=== PATIENT | male | born 1985 | race Caucasian/White ===

== ENCOUNTER 2019-02-24 22:43 | Emergency (ER) | payer MEDICAID ==
[~2019-02-24] VITALS: Ht 177.8 cm; Wt 74.0 kg
[~2019-02-24 22:43] MED LIST: ONDA4TAB6 PO
[2019-02-24] MEDS ORDERED: LIDOcaine 1% W/epiNEPHrine 1:100,000 20ml vial IJ ONE (23:30)
[2019-02-24] MEDS ORDERED: LIDOcaine 1% w/epiNEPHrine 1:200,000 30ml vial IM ONE (23:30)
--- NOTE | 2019-02-25 00:31 | NUR ---
IRRIGATED LEFT EYEBROW LACERATION WITH ZEROWET AND 400 ML OF NS
[2019-02-25] MEDS ORDERED: PENI500T2 PO (00:54)
[2019-02-25 01:19] VITALS: BP 127/72
== END 2019-02-25 01:15 | disposition home or self-care (01) ==
LOC: ER 22:44
DX: S01.112A Laceration without foreign body of left eyelid and periocular area, initial encounter (principal); S09.90XA Unspecified injury of head, initial encounter; K04.7 Periapical abscess without sinus; F17.200 Nicotine dependence, unspecified, uncomplicated; F10.99 Alcohol use, unspecified with unspecified alcohol-induced disorder; F12.90 Cannabis use, unspecified, uncomplicated; Z98.890 Other specified postprocedural states; V87.7XXA Person injured in collision between other specified motor vehicles (traffic), initial encounter; Y93.89 Activity, other specified; Y92.488 Other paved roadways as the place of occurrence of the external cause; Y99.8 Other external cause status; Y90.9 Presence of alcohol in blood, level not specified
CPT/HCPCS: 12013; 99283

== ENCOUNTER 2019-02-27 11:11 | Emergency (ER) | payer MEDICAID ==
[~2019-02-27] VITALS: Ht 177.8 cm; Wt 86.4 kg
[~2019-02-27 11:11] MED LIST changes: +LIDOcaine 1% W/epiNEPHrine 1:100,000 20ml vial ONE; +PENI500T2 PO
[2019-02-27 11:34] VITALS: BP 132/78
[2019-02-27] MEDS ORDERED: HYDROcodone/acetaminophen 5mg/325mg tablet PO ONE (12:30)
== END 2019-02-27 12:55 | disposition home or self-care (01) ==
LOC: ER 11:12
DX: K04.7 Periapical abscess without sinus (principal); F12.90 Cannabis use, unspecified, uncomplicated; F10.99 Alcohol use, unspecified with unspecified alcohol-induced disorder; F17.200 Nicotine dependence, unspecified, uncomplicated; Z79.899 Other long term (current) drug therapy; Y90.9 Presence of alcohol in blood, level not specified
CPT/HCPCS: 41800; 99283

== ENCOUNTER 2019-04-15 11:52 | Inpatient (IN) | payer MEDICAID, OTHER ==
[~2019-04-15] VITALS: Ht 177.8 cm; Wt 75.0 kg
[2019-04-15] VITALS (14 sets, daily range): BP systolic 112–145; BP diastolic 64–86
[~2019-04-15 11:52] MED LIST changes: -LIDOcaine 1% W/epiNEPHrine 1:100,000 20ml vial ONE; -PENI500T2 PO
[2019-04-15 12:23] LABS: BASOPHILS % (AUTO) 0 % (0-1); EOSINOPHILS % (AUTO) 0 % (0-6); HEMATOCRIT 42.5 % (42.0-52.0); HEMOGLOBIN 14.7 g/dl (14.0-17.9); LYMPHOCYTES # (AUTO) 0.3 X10'3 (1.1-4.8); LYMPHOCYTES % (AUTO) 3.7 % (21-51); MEAN CORPUSCULAR HEMOGLOBIN 32.4 PG (27.0-31.0); MEAN CORPUSCULAR HGB CONC 34.5 g/dL (33.0-36.5); MEAN CORPUSCULAR VOLUME 93.8 FL (78-98); MEAN PLATELET VOLUME 8.8 FL (7.4-10.4); MONOCYTES # (AUTO) 0.3 X10'3 (0-0.9); MONOCYTES % (AUTO) 4.4 % (2-12); NEUTROPHILS # (AUTO) 6.8 X10'3 (1.8-7.7); NEUTROPHILS % (AUTO) 91.9 % (42-75); PLATELET COUNT 267 X10'3 (140-440); RED BLOOD COUNT 4.53 X10'6 (4.70-6.10); RED CELL DISTRIBUTION WIDTH 13.7 % (11.5-14.5); WHITE BLOOD COUNT 7.4 X10'3 (4.5-11.0)
[2019-04-15] MEDS ORDERED: normal saline 1000ML IV soln IVB ONE ×2 (12:25→13:10)
[2019-04-15] MEDS ORDERED: ondansetron/PF 4mg/2ml inj IV ONE (12:25)
[2019-04-15] MEDS: morphine 4 MG/ML inj SYRINge IV PRN ×2 (12:28→13:40)
[2019-04-15 12:35] LABS: ALANINE AMINOTRANSFERASE 23 U/L (12-78); ALBUMIN 4.2 G/DL (3.4-5.0); ALBUMIN/GLOBULIN RATIO 1.2 (1.1-1.5); ALKALINE PHOSPHATASE 66 IU/L (46-116); ANION GAP 14 (8-16); ASPARTATE AMINO TRANSFERASE 21 U/L (10-37); BILIRUBIN,TOTAL 0.9 MG/DL (0.1-1.0); BLOOD UREA NITROGEN 20 MG/DL (7-18); BUN/CREATININE RATIO 20.2 (5.4-32.0); CALCIUM 8.6 MG/DL (8.5-10.1); CHLORIDE 105 MMOL/L (99-107); CREATININE 0.99 MG/DL (0.60-1.10); GLUCOSE 134 MG/DL (70-104); LIPASE < 50 U/L (73-393); POTASSIUM 3.9 MMOL/L (3.5-5.1); SODIUM 141 MMOL/L (135-145); TOTAL CARBON DIOXIDE 22.1 MMOL/L (24-32); TOTAL PROTEIN 7.8 G/DL (6.4-8.2); eGFR 86 ML/MIN
--- NOTE | 2019-04-15 13:01 | NUR ---
PT TO CT
[2019-04-15] MEDS ORDERED: piperacillin/tazo 3.375gm/50ml 50 ML IV ONE (13:10)
[2019-04-15 13:14] LABS: PLATELET ESTIMATE NORMAL; TOTAL CELLS COUNTED 100
[2019-04-15] MEDS ORDERED: acetaminophen 1,000mg/100ml IV 100 ML IV ONE ×2 (13:25→19:10)
[2019-04-15] MEDS ORDERED: NO HOME MEDS (13:33)
[2019-04-15] MEDS ORDERED: morphine 4 MG/ML inj SYRINge IV PRN ×3 (14:25→18:25)
[2019-04-15] MEDS ORDERED: magnesium Cl slow-release 64mg tablet PO PRN (14:25)
[2019-04-15] MEDS ORDERED: potassium CL 10mEq/100ml bag 100 ML IV PRN (14:25)
[2019-04-15] MEDS ORDERED: sodium phosphate inj. 30 MMOL in dextrose 5%-water 250 ML IV PRN (14:25)
[2019-04-15] MEDS ORDERED: sodium phosphate inj. 15 MMOL in dextrose 5%-water 150 ML IV PRN (14:25)
[2019-04-15] MEDS ORDERED: morphine 2 MG/ML inj. syringe IV PRN (14:25)
[2019-04-15] MEDS ORDERED: potassium Cl 20 mEq SR tablet PO PRN ×2 (14:25)
[2019-04-15] MEDS ORDERED: acetaminophen 325mg tablet PO PRN (14:25)
[2019-04-15] MEDS ORDERED: Neutra Phos packet PO PRN (14:25)
[2019-04-15] MEDS ORDERED: magnesium 2GM in 50ml NS 50 ML IV PRN (14:25)
[2019-04-15] MEDS ORDERED: magnesium 4gm in 100ml NS 100 ML IV PRN (14:25)
[2019-04-15] MEDS ORDERED: acetaminophen 650mg rectal suppository RC PRN (14:25)
[2019-04-15] MEDS ORDERED: ondansetron/PF 4mg/2ml inj IV PRN ×3 (14:25→19:00)
[2019-04-15 14:30] LABS: CLARITY,URINE CLEAR (Clear); COLOR,URINE YELLOW (Yellow); GLUCOSE, URINE NEGATIVE (Neg); KETONES,URINE 15 mg/dl (Neg); LEUKOCYTE ESTERASE ,URINE NEGATIVE (Neg); NITRITES, URINE NEGATIVE (Neg); OCCULT BLOOD,URINE NEGATIVE (Neg); PROTEIN,URINE NEGATIVE (Neg); UROBILINOGEN,URINE 0.2 E.U/dL (0.2-1.0)
[2019-04-15 14:34] LABS: UA COLLECTION TYPE CLN CATCH MIDSTREAM
[2019-04-15] MEDS ORDERED: gentamicin 40 MG/1 ML inj ONE (14:52)
[2019-04-15] MEDS ORDERED: clindamycin phosphate 150mg/ml inj. ONE (14:52)
[2019-04-15] MEDS: normal saline 1000ml 1,000 ML IV SCH ×4 (15:05→22:22)
[2019-04-15] MEDS: piperacillin/tazo 3.375gm/50ml 50 ML IV SCH ×2 (16:00→22:05)
[2019-04-15] MEDS ORDERED: neostigmine methylsulfate 1 MG/ML 10ml vial ONE (16:11)
[2019-04-15] MEDS ORDERED: sevoflurane 250ml liquid IH ONE (16:11)
[2019-04-15] MEDS ORDERED: ondansetron/PF 4mg/2ml inj ONE (16:11)
[2019-04-15] MEDS ORDERED: glycopyrrolate 0.2mg/ml inj ONE (16:11)
[2019-04-15 16:13] LABS: ETHANOL < 0.010 GM/DL (0.0-0.010)
[2019-04-15] MEDS ORDERED: midazolam 2 mg/2 ml injection ONE (16:15)
[2019-04-15] MEDS ORDERED: fentaNYL /PF 50mcg/ml 5ml ampule ONE (16:16)
[2019-04-15] MEDS ORDERED: ceFOXitin 2 GM ADDVANTGE BAG 50 ML IV ONE (16:42)
[2019-04-15 18:03] LABS: URINE AMPHETAMINE SCREEN POSITIVE (Neg); URINE BARBITUATE SCREEN NEGATIVE (Neg); URINE BENZODIAZEPINES SCREEN NEGATIVE (Neg); URINE CANNABINOID SCREEN POSITIVE (Neg); URINE COCAINE SCREEN NEGATIVE (Neg); URINE METHADONE SCREEN NEGATIVE (Neg); URINE OPIATE SCREEN POSITIVE (Neg); URINE PHENCYCLIDINE SCREEN NEGATIVE (Neg)
[2019-04-15] MEDS ORDERED: ringers solution, lacted 1,000 ML IV SCH (18:21)
[2019-04-15] MEDS ORDERED: meperidine/PF 25mg/ml syringe IV PRN ×3 (18:25)
[2019-04-15] MEDS ORDERED: proCHLORperazine 10 MG/2 ml inj IV PRN (18:25)
[2019-04-15] MEDS ORDERED: LIDOcaine 2% (20mg/ml) 5ml vial ONE (18:45)
[2019-04-15] MEDS ORDERED: rocuronium 10mg/ml inj IV ONE (18:45)
[2019-04-15] MEDS ORDERED: propofol inj 20 ML IV ONE (18:45)
[2019-04-15] MEDS ORDERED: dexamethasone sod phosphate 4mg/ml inj. ONE (18:45)
[2019-04-15] MEDS ORDERED: meperidine/PF 50mg/ml syringe ONE (18:48)
[2019-04-15] MEDS ORDERED: naloxone 0.4 mg/ml inj IV PRN (19:00)
[2019-04-15] MEDS ORDERED: CADD PCA waste documentation MC PRN (19:00)
--- NOTE | 2019-04-15 19:01 | NUR ---
Received from OR via BED , accompanied by Anesthesiologist DR OTERO and report given by Anesthesiolgist. PATIENT WAKING UP, DENIES PAIN, V/S WNL, CSM INTACT, SCD ON, 20G PIV TO LUE, DRESSING TO ABDOMEN CDI WITH ILDEFONSO WITH 60CC OUT PUT SO FAR. ILLEOSTOMY BAG WITH PINKISH RED STOMA CDI BAG
[2019-04-15] MEDS ORDERED: ketorolac trometh. 30mg/ml inj. IV PRN (19:05)
[2019-04-15] MEDS: HYDROmorphone/NS 1 mg/ml CADD 50 ML IV SCH ×3 (19:13→23:00)
--- NOTE | 2019-04-15 19:41 | NUR ---
Patient in room ED 7. I have received report from JUVENTINO Briseno and had the opportunity to ask questions and assume patient care.
--- NOTE | 2019-04-15 19:51 | NUR ---
PATIENT WAKING UP, DENIES PAIN, V/S WNL, CSM INTACT, SCD ON, 20G PIV X2 TO LUE AND TO RUE, DRESSING TO ABDOMEN CDI WITH ILDEFONSO WITH 150CC OUT PUT SO FAR. ILLEOSTOMY BAG WITH PINKISH RED STOMA CDI BAG. F/C DRAINING CLOUDY YELLOW URINE, SENIOR ADULTS DIRECTOR STARTED AND BOLUS GIVEN. PATIENT VERBALIZED AND DEMO SENIOR ADULTS DIRECTOR SUCCESSFULLY, TELE 1 ON. PATIENT TAKEN TO 349A WITH ALL BELONGINGS AND HOOKED UP TO MONITORS IN ROOM AND REPORT GIVEN TO PILE TRIMMER WHO HAS TAKEN OVER PATIENT CARE.
[2019-04-15] MEDS: potassium CL 20mEq in D5-1/2NS 1,000 ML IV SCH (21:58)
[2019-04-15] MEDS: pantoprazole 40 MG vial IV SCH (21:58)
[2019-04-16] VITALS (7 sets, daily range): BP systolic 120–144; BP diastolic 64–86
[2019-04-16] MEDS: piperacillin/tazo 3.375gm/50ml 50 ML IV SCH ×3 (00:29→15:35)
[2019-04-16] MEDS: HYDROmorphone/NS 1 mg/ml CADD 50 ML IV SCH ×12 (01:00→23:00)
[2019-04-16 04:13] LABS: BASOPHILS % (AUTO) 0.1 % (0-1); EOSINOPHILS % (AUTO) 0 % (0-6); HEMATOCRIT 33.4 % (42.0-52.0); HEMOGLOBIN 11.6 g/dl (14.0-17.9); LYMPHOCYTES # (AUTO) 0.7 X10'3 (1.1-4.8); LYMPHOCYTES % (AUTO) 7.7 % (21-51); MEAN CORPUSCULAR HEMOGLOBIN 33.2 PG (27.0-31.0); MEAN CORPUSCULAR HGB CONC 34.7 g/dL (33.0-36.5); MEAN CORPUSCULAR VOLUME 95.7 FL (78-98); MEAN PLATELET VOLUME 9.1 FL (7.4-10.4); MONOCYTES # (AUTO) 0.4 X10'3 (0-0.9); MONOCYTES % (AUTO) 3.7 % (2-12); NEUTROPHILS # (AUTO) 8.4 X10'3 (1.8-7.7); NEUTROPHILS % (AUTO) 88.5 % (42-75); PLATELET COUNT 211 X10'3 (140-440); RED BLOOD COUNT 3.49 X10'6 (4.70-6.10); RED CELL DISTRIBUTION WIDTH 13.8 % (11.5-14.5); WHITE BLOOD COUNT 9.5 X10'3 (4.5-11.0)
[2019-04-16] MEDS: normal saline 1000ml 1,000 ML IV SCH ×5 (04:25→22:22)
[2019-04-16 04:26] LABS: ALANINE AMINOTRANSFERASE 17 U/L (12-78); ALBUMIN 2.7 G/DL (3.4-5.0); ALBUMIN/GLOBULIN RATIO 0.9 (1.1-1.5); ALKALINE PHOSPHATASE 49 IU/L (46-116); ANION GAP 6 (8-16); ASPARTATE AMINO TRANSFERASE 17 U/L (10-37); BILIRUBIN,TOTAL 0.6 MG/DL (0.1-1.0); BLOOD UREA NITROGEN 12 MG/DL (7-18); BUN/CREATININE RATIO 12.6 (5.4-32.0); CALCIUM 7.9 MG/DL (8.5-10.1); CHLORIDE 108 MMOL/L (99-107); CREATININE 0.95 MG/DL (0.60-1.10); GLUCOSE 144 MG/DL (70-104); MAGNESIUM 1.8 MG/DL (1.5-2.4); PHOSPHORUS 2.8 MG/DL (2.3-4.5); POTASSIUM 4.4 MMOL/L (3.5-5.1); SODIUM 141 MMOL/L (135-145); TOTAL PROTEIN 5.7 G/DL (6.4-8.2); eGFR 90 ML/MIN
[2019-04-16] MEDS: potassium CL 20mEq in D5-1/2NS 1,000 ML IV SCH ×3 (05:02→15:34)
--- NOTE | 2019-04-16 06:30 | NUR ---
Patient in room [facility]. I have received report from Evelio JAUREGUI and had the opportunity to ask questions and assume patient care.
[2019-04-16] MEDS: pantoprazole 40 MG vial IV SCH ×2 (09:15→20:48)
[2019-04-16] MEDS: fluconazole/NS 400mg/200ml bag 200 ML IV SCH (10:44)
--- NOTE | 2019-04-16 16:40 | NUR ---
Malnutrition consult re: "lost weight from work without trying from work". Pt seen at bedside states he started a new job 6 months ago that requires high physical activity and long shifts resulting in decreased time availability to eat meals. Upon further discussion pt states he will generally eat lunch and dinner and states he's "not starving" and will make sure to eat daily. Pt reports UBW of 190 lbs and believes he's lost 10 lbs in 2 months, current documented wt is 130lb using chair scale, likely not accurate given wt hx. D/w RN who states a standing scale wt will be obtained. If pt truly lost 10 lbs this is non-significant wt loss of 5% in two months. Patient's diet just advanced to clear liquid from NPO, pending first meal tray, pt states he's "starving". Pt with no edema, decrease in muscle strength, and no visible muscle or fat wasting. Pt currently does not meet criteria for malnutrition. Pt s/p ex lap with sigmoid colectomy and loop ileostomy placement. Pt provided with written ileostomy nutrition therapy education with thorough verbal review. Per H&P pt drinks a lot of energy drinks. At bedside visit pt reports he drinks up to four energy drinks daily. D/w pt the impact of energy drinks s/p ileostomy. Pt grew emotional during education. Informed pt about online support groups and encouraged pt to look in to books/additional information about ileostomy to put his mind at ease. director of creative services has already been consulted. RD contact information provided. Encouraged pt to reach out if he has any further questions/concerns. Recommend diet advancement to low fiber/low residue as medically indicated given recent GI surgery. Will continue to follow. Addendum: 04/16/19 at [address] Amended: Links added.
--- NOTE | 2019-04-16 18:41 | NUR ---
Problems reprioritized. Patient report given, questions answered & plan of care reviewed with Esperanza Rivers RN.
--- NOTE | 2019-04-16 18:44 | NUR ---
Patient in room [facility]. I have received report from JUVENTINO Matta and had the opportunity to ask questions and assume patient care. Addendum: 04/16/19 at 1844 by Estefania Tejeda RN Amended: Links added.
[2019-04-16] MEDS: lactobacillus rhamnosus 10,000 MMU CELLS/CAPSULE PO SCH (20:48)
[2019-04-17] VITALS: BP 120/67
[2019-04-17] MEDS: piperacillin/tazo 3.375gm/50ml 50 ML IV SCH ×3 (00:31→16:59)
[2019-04-17] MEDS: potassium CL 20mEq in D5-1/2NS 1,000 ML IV SCH ×3 (00:32→17:30)
[2019-04-17] MEDS: HYDROmorphone/NS 1 mg/ml CADD 50 ML IV SCH ×13 (01:00→23:00)
[2019-04-17 04:54] LABS: BASOPHILS % (AUTO) 0.1 % (0-1); EOSINOPHILS % (AUTO) 0.2 % (0-6); HEMATOCRIT 30.9 % (42.0-52.0); HEMOGLOBIN 10.5 g/dl (14.0-17.9); LYMPHOCYTES # (AUTO) 0.9 X10'3 (1.1-4.8); LYMPHOCYTES % (AUTO) 10.8 % (21-51); MEAN CORPUSCULAR HEMOGLOBIN 32.6 PG (27.0-31.0); MEAN CORPUSCULAR VOLUME 95.7 FL (78-98); MEAN PLATELET VOLUME 8.9 FL (7.4-10.4); MONOCYTES # (AUTO) 0.3 X10'3 (0-0.9); MONOCYTES % (AUTO) 3.6 % (2-12); NEUTROPHILS # (AUTO) 7.4 X10'3 (1.8-7.7); NEUTROPHILS % (AUTO) 85.3 % (42-75); PLATELET COUNT 179 X10'3 (140-440); RED BLOOD COUNT 3.23 X10'6 (4.70-6.10); RED CELL DISTRIBUTION WIDTH 13.7 % (11.5-14.5); WHITE BLOOD COUNT 8.7 X10'3 (4.5-11.0)
[2019-04-17 05:10] LABS: ALANINE AMINOTRANSFERASE 17 U/L (12-78); ALBUMIN 2.5 G/DL (3.4-5.0); ALBUMIN/GLOBULIN RATIO 0.8 (1.1-1.5); ALKALINE PHOSPHATASE 56 IU/L (46-116); ANION GAP 4 (8-16); ASPARTATE AMINO TRANSFERASE 18 U/L (10-37); BILIRUBIN,TOTAL 0.5 MG/DL (0.1-1.0); BLOOD UREA NITROGEN 6 MG/DL (7-18); BUN/CREATININE RATIO 6.6 (5.4-32.0); CALCIUM 7.9 MG/DL (8.5-10.1); CHLORIDE 107 MMOL/L (99-107); CREATININE 0.91 MG/DL (0.60-1.10); GLUCOSE 111 MG/DL (70-104); MAGNESIUM 1.8 MG/DL (1.5-2.4); PHOSPHORUS 1.8 MG/DL (2.3-4.5); POTASSIUM 3.7 MMOL/L (3.5-5.1); SODIUM 139 MMOL/L (135-145); TOTAL CARBON DIOXIDE 27.6 MMOL/L (24-32); TOTAL PROTEIN 5.8 G/DL (6.4-8.2); eGFR > 90 ML/MIN
[2019-04-17] MEDS: normal saline 1000ml 1,000 ML IV SCH ×2 (06:22→14:22)
--- NOTE | 2019-04-17 06:30 | NUR ---
Patient in room [facility]. I have received report from Elyssa Rivers RN and had the opportunity to ask questions and assume patient care.
--- NOTE | 2019-04-17 06:34 | NUR ---
Problems reprioritized. Patient report given, questions answered & plan of care reviewed with JUVENTINO PORTER. Addendum: 04/17/19 at 0635 by Estefania Tejeda RN Amended: Links added.
[2019-04-17 07:37] VITALS: BP 129/81
[2019-04-17] MEDS: fluconazole/NS 400mg/200ml bag 200 ML IV SCH (08:19)
[2019-04-17] MEDS: lactobacillus rhamnosus 10,000 MMU CELLS/CAPSULE PO SCH ×2 (08:20→19:16)
[2019-04-17] MEDS: pantoprazole 40 MG vial IV SCH ×2 (08:40→19:16)
--- NOTE | 2019-04-17 08:53 | NUR ---
Pt reports being lactose intolerant. Updated [employer] and d/w dietary. Addendum: 04/17/19 at [address] Amended: Links added.
[2019-04-17 09:06] VITALS: BP 144/89
[2019-04-17 11:00] VITALS: BP 140/87
--- NOTE | 2019-04-17 12:57 | NUR ---
Per Dr Giselle wright to Jr Sergio drain. Advance diet as tolerated from clear to Regular diet. Possibly changed to PO antibiotics Sunday or Sunday.
[2019-04-17] MEDS ORDERED: bisacodyl 10mg suppository rectal RC PRN (14:25)
--- NOTE | 2019-04-17 15:37 | NUR ---
Student documentation: I have reviewed and agree with all interventions, assessments performed and documented by .Netta COPPOLA
--- NOTE | 2019-04-17 16:47 | NUR ---
upon reviewing EMAR one of the charted cadd settings check did not save after entry for some reason. Patient current assessments are accurate and up to date.
--- NOTE | 2019-04-17 18:05 | NUR ---
Patient in room [facility]. I have received report from Paxton JAUREGUI and had the opportunity to ask questions and assume patient care.
--- NOTE | 2019-04-17 18:30 | NUR ---
Problems reprioritized. Patient report given, questions answered & plan of care reviewed with Delvis JAUREGUI.
[2019-04-17 20:00] VITALS: BP 144/77
[2019-04-18] VITALS: BP 127/75
[2019-04-18] MEDS: piperacillin/tazo 3.375gm/50ml 50 ML IV SCH ×3 (00:18→15:46)
[2019-04-18] MEDS: HYDROmorphone/NS 1 mg/ml CADD 50 ML IV SCH ×9 (01:00→17:00)
[2019-04-18] MEDS: potassium CL 20mEq in D5-1/2NS 1,000 ML IV SCH ×3 (01:31→19:58)
[2019-04-18 04:44] LABS: BASOPHILS % (AUTO) 0.2 % (0-1); EOSINOPHILS # (AUTO) 0.1 X10'3 (0-0.9); EOSINOPHILS % (AUTO) 0.9 % (0-6); HEMATOCRIT 33.8 % (42.0-52.0); HEMOGLOBIN 11.5 g/dl (14.0-17.9); LYMPHOCYTES # (AUTO) 0.6 X10'3 (1.1-4.8); LYMPHOCYTES % (AUTO) 7.4 % (21-51); MEAN CORPUSCULAR HEMOGLOBIN 32.4 PG (27.0-31.0); MEAN CORPUSCULAR HGB CONC 34.1 g/dL (33.0-36.5); MEAN PLATELET VOLUME 8.6 FL (7.4-10.4); MONOCYTES # (AUTO) 0.3 X10'3 (0-0.9); NEUTROPHILS # (AUTO) 7.4 X10'3 (1.8-7.7); NEUTROPHILS % (AUTO) 87.5 % (42-75); PLATELET COUNT 218 X10'3 (140-440); RED BLOOD COUNT 3.55 X10'6 (4.70-6.10); RED CELL DISTRIBUTION WIDTH 13.7 % (11.5-14.5); WHITE BLOOD COUNT 8.5 X10'3 (4.5-11.0)
[2019-04-18 05:22] LABS: ALANINE AMINOTRANSFERASE 19 U/L (12-78); ALBUMIN 2.6 G/DL (3.4-5.0); ALBUMIN/GLOBULIN RATIO 0.7 (1.1-1.5); ALKALINE PHOSPHATASE 68 IU/L (46-116); ANION GAP 6 (8-16); ASPARTATE AMINO TRANSFERASE 14 U/L (10-37); BILIRUBIN,TOTAL 0.5 MG/DL (0.1-1.0); BLOOD UREA NITROGEN 2 MG/DL (7-18); BUN/CREATININE RATIO 2.2 (5.4-32.0); CALCIUM 8.6 MG/DL (8.5-10.1); CHLORIDE 103 MMOL/L (99-107); CREATININE 0.92 MG/DL (0.60-1.10); GLUCOSE 124 MG/DL (70-104); MAGNESIUM 1.8 MG/DL (1.5-2.4); POTASSIUM 3.8 MMOL/L (3.5-5.1); SODIUM 139 MMOL/L (135-145); TOTAL CARBON DIOXIDE 30.4 MMOL/L (24-32); TOTAL PROTEIN 6.4 G/DL (6.4-8.2); eGFR > 90 ML/MIN
--- NOTE | 2019-04-18 06:40 | NUR ---
Problems reprioritized. Patient report given, questions answered & plan of care reviewed with Ginny JAUREGUI.
--- NOTE | 2019-04-18 06:43 | NUR ---
Patient in room [facility]. I have received report from chai granados and had the opportunity to ask questions and assume patient care.
[2019-04-18] MEDS: normal saline 1000ml 1,000 ML IV SCH (07:08)
[2019-04-18] MEDS: lactobacillus rhamnosus 10,000 MMU CELLS/CAPSULE PO SCH ×2 (07:54→19:58)
[2019-04-18] MEDS: enoxaparin 40mg/0.4ml syringe SUBCUT SCH (07:56)
[2019-04-18] MEDS: pantoprazole 40 MG vial IV SCH (07:56)
[2019-04-18] MEDS: fluconazole/NS 400mg/200ml bag 200 ML IV SCH (07:57)
[2019-04-18 11:00] VITALS: BP 120/63
[2019-04-18 18:00] VITALS: BP_SYST 120; BP_SYST 139; BP_DIAS 63; BP_DIAS 78
--- NOTE | 2019-04-18 18:00 | NUR ---
Patient in room [facility]. I have received report from Ginny JAUREGUI and had the opportunity to ask questions and assume patient care.
[2019-04-18] MEDS: pantoprazole 40mg Tablet.DR PO SCH (19:59)
[2019-04-19] VITALS: BP 134/75
[2019-04-19] MEDS: normal saline 1000ml 1,000 ML IV SCH (03:08)
[2019-04-19] MEDS: HYDROcodone/acetaminophen 10/325mg tab PO PRN ×3 (03:50→12:41)
[2019-04-19] MEDS: potassium CL 20mEq in D5-1/2NS 1,000 ML IV SCH ×2 (03:50→10:59)
[2019-04-19 04:47] LABS: BASOPHILS % (AUTO) 0.2 % (0-1); EOSINOPHILS # (AUTO) 0.1 X10'3 (0-0.9); EOSINOPHILS % (AUTO) 1.2 % (0-6); HEMATOCRIT 34.9 % (42.0-52.0); HEMOGLOBIN 11.9 g/dl (14.0-17.9); LYMPHOCYTES # (AUTO) 0.6 X10'3 (1.1-4.8); LYMPHOCYTES % (AUTO) 7.9 % (21-51); MEAN CORPUSCULAR HEMOGLOBIN 32.5 PG (27.0-31.0); MEAN CORPUSCULAR HGB CONC 34.2 g/dL (33.0-36.5); MEAN PLATELET VOLUME 8.4 FL (7.4-10.4); MONOCYTES # (AUTO) 0.5 X10'3 (0-0.9); MONOCYTES % (AUTO) 7.5 % (2-12); NEUTROPHILS # (AUTO) 6.1 X10'3 (1.8-7.7); NEUTROPHILS % (AUTO) 83.2 % (42-75); PLATELET COUNT 255 X10'3 (140-440); RED BLOOD COUNT 3.68 X10'6 (4.70-6.10); RED CELL DISTRIBUTION WIDTH 13.2 % (11.5-14.5); WHITE BLOOD COUNT 7.3 X10'3 (4.5-11.0)
[2019-04-19 06:04] LABS: ALANINE AMINOTRANSFERASE 18 U/L (12-78); ALBUMIN 2.7 G/DL (3.4-5.0); ALBUMIN/GLOBULIN RATIO 0.7 (1.1-1.5); ALKALINE PHOSPHATASE 69 IU/L (46-116); ANION GAP 10 (8-16); ASPARTATE AMINO TRANSFERASE 16 U/L (10-37); BILIRUBIN,TOTAL 0.4 MG/DL (0.1-1.0); BLOOD UREA NITROGEN 5 MG/DL (7-18); BUN/CREATININE RATIO 5.9 (5.4-32.0); CALCIUM 8.9 MG/DL (8.5-10.1); CHLORIDE 101 MMOL/L (99-107); CREATININE 0.85 MG/DL (0.60-1.10); GLUCOSE 125 MG/DL (70-104); PHOSPHORUS 3.9 MG/DL (2.3-4.5); POTASSIUM 3.6 MMOL/L (3.5-5.1); SODIUM 138 MMOL/L (135-145); TOTAL PROTEIN 6.6 G/DL (6.4-8.2); eGFR > 90 ML/MIN
--- NOTE | 2019-04-19 06:19 | NUR ---
Problems reprioritized. Patient report given, questions answered & plan of care reviewed with Breana JAUREGUI.
[2019-04-19 06:56] VITALS: BP 114/68
[2019-04-19] MEDS: lactobacillus rhamnosus 10,000 MMU CELLS/CAPSULE PO SCH (07:33)
[2019-04-19] MEDS: pantoprazole 40mg Tablet.DR PO SCH (07:34)
[2019-04-19] MEDS: enoxaparin 40mg/0.4ml syringe SUBCUT SCH (07:36)
[2019-04-19] MEDS ORDERED: fluconazole 100mg tablet PO SCH (08:00)
[2019-04-19] MEDS ORDERED: amox tr/potassium clavulanate 875/125mg TAB PO SCH (08:30)
[2019-04-19 11:00] VITALS: BP 129/82
[2019-04-19] MEDS ORDERED: AMOX-580 PO (11:14)
[2019-04-19] MEDS ORDERED: PANT40TA4 PO (11:14)
[2019-04-19] MEDS ORDERED: LACT1CAP26 PO (11:14)
--- NOTE | 2019-04-19 13:52 | NUR ---
PT WAITING FOR S/O TO GET A BREAK FROM WORK TO PICK HIM UP.
--- NOTE | 2019-04-19 16:00 | NUR ---
Pt discharged with s/o home. he has ostomy supplies to get him through until he can go to medical supply company and get more. Meds called into pharmacy, IV taken out, all belongings taken from room. Pt appropriate for discharge, knows how to change ostomy and understands all directions. pt will f/u with Dr Desai, office number given to make appt.
== END 2019-04-19 15:37 | disposition home or self-care (01) | DRG 331 ==
LOC: ER 11:54 → ED HOLD 14:57 → SUR 3N 19:50
PROVIDERS: ADMIT Internal Medicine Critical Care Medicine; ATTEND Family Medicine
PROC: 0DBP0ZZ Excision of Rectum, Open Approach (ICD-10-PCS; 2019-04-15)
PROC: 0DBN0ZZ Excision of Sigmoid Colon, Open Approach (ICD-10-PCS; 2019-04-15)
PROC: 0D1B0Z4 Bypass Ileum to Cutaneous, Open Approach (ICD-10-PCS; principal; 2019-04-15 16:10)
DX: K63.1 Perforation of intestine (nontraumatic) (principal); E86.0 Dehydration; K66.8 Other specified disorders of peritoneum; F10.10 Alcohol abuse, uncomplicated; F15.10 Other stimulant abuse, uncomplicated; F17.200 Nicotine dependence, unspecified, uncomplicated; F12.90 Cannabis use, unspecified, uncomplicated; Z71.6 Tobacco abuse counseling; Z79.899 Other long term (current) drug therapy
CPT/HCPCS: 96361; 96374; 96375; 99285; Z7506; Z7508; 36415; 74176; 80053; 80305; 80320; 81003; 82948; 83605; 83690; 83735; 84100; 84145; 85025; 85610; 86885; 86900; 86901; 87070; 87075; 87081; 87102; 93005; A4215; A4421; A4618; A6253; A6402; A6407; A6449; A7000; C1758; C9113; G0378; J0131; J0694; J1100; J1170; J1450; J1580; J1650; J1885; J2001; J2175; J2250; J2270; J2405; J2543; J2704; J2710; J3010; J3480; J3490; J7030; J7120

== ENCOUNTER 2019-07-25 10:11 | Inpatient (IN) | payer MEDICAID ==
[2019-07-21 14:38] LABS: BASOPHILS % (AUTO) 0.5 % (0-1); EOSINOPHILS % (AUTO) 0.7 % (0-6); LYMPHOCYTES # (AUTO) 1.5 X10'3 (1.1-4.8); LYMPHOCYTES % (AUTO) 21.4 % (21-51); MEAN CORPUSCULAR VOLUME 91.2 FL (78-98); MEAN PLATELET VOLUME 8.8 FL (7.4-10.4); MONOCYTES # (AUTO) 0.5 X10'3 (0-0.9); MONOCYTES % (AUTO) 6.5 % (2-12); NEUTROPHILS # (AUTO) 5.1 X10'3 (1.8-7.7); NEUTROPHILS % (AUTO) 70.9 % (42-75); PRE OP HEMATOCRIT 39.1 % (42.0-52.0); PRE OP HEMOGLOBIN 13.3 g/dL (14.0-17.9); PRE OP PLATELET COUNT 269 X10'3 (140-440); RED BLOOD COUNT 4.28 X10'6 (4.70-6.10)
[2019-07-21 14:51] LABS: PRE OP PROTIME 10.3 SECONDS (9.0-12.0)
[2019-07-21 15:07] LABS: ALBUMIN 4.2 G/DL (3.4-5.0); ALBUMIN/GLOBULIN RATIO 1.2 (1.1-1.5); ALKALINE PHOSPHATASE 84 IU/L (46-116); BLOOD UREA NITROGEN 17 MG/DL (7-18); BUN/CREATININE RATIO 16.5 (5.4-32.0); CHLORIDE 108 MMOL/L (99-107); CREATININE 1.03 MG/DL (0.60-1.10); PRE OP ALT 23 U/L (30-65); PRE OP ANION GAP 5 (8-16); PRE OP AST 15 U/L (10-37); PRE OP BILIRUB, TOTAL 0.2 MG/DL (0.0-1.0); PRE OP GLUCOSE 86 MG/DL (70-104); PRE OP POTASSIUM 4.2 MMOL/L (3.4-5.1); PRE OP SODIUM 143 MMOL/L (135-145); TOTAL CARBON DIOXIDE 29.6 MMOL/L (24-32); TOTAL PROTEIN 7.6 G/DL (6.4-8.2); eGFR 82 ML/MIN
[~2019-07-25] VITALS: Ht 177.8 cm; Wt 78.3 kg
[2019-07-25] VITALS (16 sets, daily range): BP systolic 129–172; BP diastolic 59–98
[~2019-07-25 10:11] MED LIST changes: +NO HOME MEDS; -ONDA4TAB6 PO; +ceFOXitin sod/dextrose 2g/50ml 50 ML IV ONE; +famotidine 20mg tablet PO ONE; +ringers solution, lacted 1,000 ML IV SCH
[2019-07-25] MEDS ORDERED: iohexol 300mg/ml 100ml inj. ONE (10:16)
[2019-07-25] MEDS ORDERED: diatrozoate meglu/diatrozoate sod (37% iodine) 120ML oral solution ONE (10:21)
[2019-07-25] MEDS ORDERED: ringers solution, lacted 1,000 ML IV SCH (15:21)
[2019-07-25] MEDS ORDERED: morphine 4 MG/ML inj SYRINge IV PRN ×2 (15:25)
[2019-07-25] MEDS ORDERED: proCHLORperazine 10 MG/2 ml inj IV PRN (15:25)
[2019-07-25] MEDS ORDERED: ondansetron/PF 4mg/2ml inj IV PRN ×2 (15:25→18:55)
[2019-07-25] MEDS ORDERED: meperidine/PF 25mg/ml syringe IV PRN ×2 (15:25)
[2019-07-25] MEDS ORDERED: gentamicin 40 MG/1 ML inj ONE (16:38)
[2019-07-25] MEDS ORDERED: clindamycin phosphate 150mg/ml inj. ONE (16:39)
[2019-07-25] MEDS ORDERED: rocuronium 10mg/ml inj IV ONE (17:28)
[2019-07-25] MEDS ORDERED: sevoflurane 250ml liquid IH ONE (17:28)
[2019-07-25] MEDS ORDERED: dexamethasone sod phosphate 10mg/ml inj ONE (17:28)
[2019-07-25] MEDS ORDERED: LIDOcaine 1%/PF 5ML 10 MG/ML VIAL ONE (17:28)
[2019-07-25] MEDS ORDERED: midazolam 2 mg/2 ml injection ONE (17:31)
[2019-07-25] MEDS ORDERED: fentaNYL /PF 50mcg/ml 5ml ampule ONE (17:32)
[2019-07-25] MEDS ORDERED: morphine 10mg/ml inj. ONE (18:33)
[2019-07-25] MEDS ORDERED: glycopyrrolate 0.2mg/ml inj ONE (19:01)
[2019-07-25] MEDS ORDERED: propofol inj 20 ML IV ONE (19:01)
[2019-07-25] MEDS ORDERED: neostigmine methylsulfate 1 MG/ML 10ml vial ONE (19:01)
[2019-07-25] MEDS ORDERED: ketorolac trometh. 30mg/ml inj. ONE (19:01)
--- NOTE | 2019-07-25 19:05 | NUR ---
Received from OR via BED, accompanied by Anesthesiologist DR STEPHENS-- and report given by Anesthesiolgist. PATIENT WAKING UP, DENIES PAIN, V/S WNL, NEUROVASCULAR CHECKS INTACT, 18G PIV LUE, SCD ON, LARGE ABDOMEN ABD PAD DRESSINGS CDI
[2019-07-25] MEDS ORDERED: acetaminophen 1,000mg/100ml IV 100 ML IV ONE (19:15)
[2019-07-25] MEDS: meperidine/PF 25mg/ml syringe IV PRN ×4 (19:16→20:11)
--- NOTE | 2019-07-25 20:05 | NUR ---
PATIENT SLEEPY BUT A&OX4, C/O PAIN AT TIMES POSITIONAL SEE EMAR FOR MEDS GIVEN, V/S WNL, NEUROVASCULAR CHECKS INTACT, 18G PIV LUE, SCD ON, LARGE ABDOMEN ABD PAD DRESSINGS CDI . PATIENT TAKEN TO 349B WITH ALL BELONGINGS AND HOOKED UP TO MONITORS IN ROOM AND REPORT GIVEN TO RN WHO HAS TAKEN OVER PATIENT CARE.
[2019-07-25] MEDS: potassium CL 20mEq in D5-1/2NS 1,000 ML IV SCH (21:34)
[2019-07-26] VITALS: BP 131/74
[2019-07-26] MEDS ORDERED: ceFOXitin 1 GM/D5W 50mL IVPB 1,000 GM in normal saline 100ml IV soln 100 ML IV SCH ×2
[2019-07-26] MEDS: ceFOXitin 1 GM/D5W 50mL IVPB 50 ML IV SCH ×2 (00:37→09:42)
[2019-07-26] MEDS: potassium CL 20mEq in D5-1/2NS 1,000 ML IV SCH ×4 (04:12→22:04)
[2019-07-26 05:46] LABS: BASOPHILS % (AUTO) 0.1 % (0-1); EOSINOPHILS % (AUTO) 0 % (0-6); HEMATOCRIT 37.7 % (42.0-52.0); HEMOGLOBIN 12.9 g/dl (14.0-17.9); LYMPHOCYTES # (AUTO) 0.5 X10'3 (1.1-4.8); LYMPHOCYTES % (AUTO) 3.3 % (21-51); MEAN CORPUSCULAR HEMOGLOBIN 31.1 PG (27.0-31.0); MEAN CORPUSCULAR HGB CONC 34.2 g/dL (33.0-36.5); MONOCYTES # (AUTO) 0.4 X10'3 (0-0.9); MONOCYTES % (AUTO) 2.7 % (2-12); NEUTROPHILS # (AUTO) 13.3 X10'3 (1.8-7.7); NEUTROPHILS % (AUTO) 93.9 % (42-75); PLATELET COUNT 245 X10'3 (140-440); RED BLOOD COUNT 4.14 X10'6 (4.70-6.10); WHITE BLOOD COUNT 14.1 X10'3 (4.5-11.0)
--- NOTE | 2019-07-26 06:00 | NUR ---
Patient in room [facility]. I have received report from JUVENTINO Mckinney and had the opportunity to ask questions and assume patient care.
[2019-07-26 06:49] VITALS: BP 113/64
[2019-07-26] MEDS: HYDROmorphone 1 mg/ml syringe IV PRN ×3 (07:55→17:12)
[2019-07-26 11:20] VITALS: BP 121/66
[2019-07-26] MEDS ORDERED: diatrozoate meglu/diatrozoate sod (37% iodine) 120ML oral solution ONE (14:44)
--- NOTE | 2019-07-26 14:49 | NUR ---
patient down to CT scan via wheelchair accompanied by transfer tech.
[2019-07-26 18:00] VITALS: BP 111/55
--- NOTE | 2019-07-26 18:30 | NUR ---
Problems reprioritized. Patient report given, questions answered & plan of care reviewed with JUVENTINO Mckinney.
--- NOTE | 2019-07-26 18:50 | NUR ---
Patient in room [facility]. I have received report from WON JAUREGUI and had the opportunity to ask questions and assume patient care.
[2019-07-26] MEDS: diatr meglu/diatrizoate 30ml oral sol.-(3 dose) bottle PO SCH ×2 (18:53→18:54)
[2019-07-26] MEDS: HYDROcodone/acetaminophen 10/325mg tab PO PRN (20:45)
[2019-07-27] VITALS: BP 125/76
[2019-07-27] MEDS: HYDROmorphone 1 mg/ml syringe IV PRN ×5 (01:00→22:59)
[2019-07-27] MEDS: potassium CL 20mEq in D5-1/2NS 1,000 ML IV SCH ×3 (05:03→19:54)
[2019-07-27 05:35] LABS: BASOPHILS % (AUTO) 0.2 % (0-1); EOSINOPHILS % (AUTO) 0.2 % (0-6); HEMOGLOBIN 12.2 g/dl (14.0-17.9); LYMPHOCYTES # (AUTO) 1.9 X10'3 (1.1-4.8); LYMPHOCYTES % (AUTO) 17.9 % (21-51); MEAN CORPUSCULAR HEMOGLOBIN 31.5 PG (27.0-31.0); MEAN CORPUSCULAR HGB CONC 34.9 g/dL (33.0-36.5); MONOCYTES # (AUTO) 0.9 X10'3 (0-0.9); MONOCYTES % (AUTO) 8.3 % (2-12); NEUTROPHILS % (AUTO) 73.4 % (42-75); PLATELET COUNT 231 X10'3 (140-440); RED BLOOD COUNT 3.88 X10'6 (4.70-6.10); WHITE BLOOD COUNT 10.9 X10'3 (4.5-11.0)
--- NOTE | 2019-07-27 06:00 | NUR ---
Patient in room [facility]. I have received report from JUVENTINO Mckinney and had the opportunity to ask questions and assume patient care.
--- NOTE | 2019-07-27 06:17 | NUR ---
Problems reprioritized. Patient report given, questions answered & plan of care reviewed with Timbo JAUREGUI.
[2019-07-27 07:00] VITALS: BP 131/68
[2019-07-27] MEDS: HYDROcodone/acetaminophen 10/325mg tab PO PRN ×2 (10:07→19:47)
[2019-07-27 11:00] VITALS: BP 124/65
[2019-07-27 18:30] VITALS: BP 124/61
--- NOTE | 2019-07-27 18:30 | NUR ---
Problems reprioritized. Patient report given, questions answered & plan of care reviewed with JUVENTINO Burns.
[2019-07-27] MEDS: magnesium hydroxide 30ml (MOM) UD suspension PO SCH (19:46)
--- NOTE | 2019-07-27 23:21 | NUR ---
PT PASSED GAS TONIGHT!
[2019-07-28] VITALS: BP 122/74
[2019-07-28] MEDS: HYDROcodone/acetaminophen 10/325mg tab PO PRN ×5 (03:15→21:41)
[2019-07-28 05:21] LABS: BASOPHILS % (AUTO) 0.5 % (0-1); EOSINOPHILS # (AUTO) 0.2 X10'3 (0-0.9); EOSINOPHILS % (AUTO) 2.3 % (0-6); HEMATOCRIT 34.8 % (42.0-52.0); HEMOGLOBIN 12.1 g/dl (14.0-17.9); LYMPHOCYTES # (AUTO) 1.5 X10'3 (1.1-4.8); LYMPHOCYTES % (AUTO) 17.6 % (21-51); MEAN CORPUSCULAR HEMOGLOBIN 31.6 PG (27.0-31.0); MEAN CORPUSCULAR HGB CONC 34.7 g/dL (33.0-36.5); MEAN PLATELET VOLUME 8.8 FL (7.4-10.4); MONOCYTES # (AUTO) 0.8 X10'3 (0-0.9); MONOCYTES % (AUTO) 8.8 % (2-12); NEUTROPHILS % (AUTO) 70.8 % (42-75); PLATELET COUNT 236 X10'3 (140-440); RED BLOOD COUNT 3.83 X10'6 (4.70-6.10); WHITE BLOOD COUNT 8.5 X10'3 (4.5-11.0)
--- NOTE | 2019-07-28 06:42 | NUR ---
Problems reprioritized. Patient report given, questions answered & plan of care reviewed with BRITTNEY. Addendum: 07/28/19 at 0642 by Navarro Kline RN Amended: Links added.
--- NOTE | 2019-07-28 06:46 | NUR ---
Patient in room [facility]. I have received report from francois granados and had the opportunity to ask questions and assume patient care.
[2019-07-28] MEDS: magnesium hydroxide 30ml (MOM) UD suspension PO SCH ×2 (07:16→20:00)
[2019-07-28 08:00] VITALS: BP 125/76
[2019-07-28] MEDS: potassium CL 20mEq in D5-1/2NS 1,000 ML IV SCH (11:37)
--- NOTE | 2019-07-28 14:46 | NUR ---
patient medicated for pain10/25 x2 with effect. All cares given. Up ambulating in hallway x2. had BM. Advanced to regular diet for dinner. Seen by Dr perez. Javier SWANN. will continue to monitor.
--- NOTE | 2019-07-28 18:40 | NUR ---
Patient in room [facility]. I have received report from Adelina JAUREGUI and had the opportunity to ask questions and assume patient care.
--- NOTE | 2019-07-28 18:51 | NUR ---
Problems reprioritized. Patient report given, questions answered & plan of care reviewed with henrietta JAUREGUI.
[2019-07-28 20:17] VITALS: BP 127/71
[2019-07-29] VITALS: BP_SYST 114; BP_SYST 121; BP_DIAS 65; BP_DIAS 67
[2019-07-29] MEDS: HYDROcodone/acetaminophen 10/325mg tab PO PRN ×3 (04:33→14:04)
[2019-07-29 05:31] LABS: BASOPHILS % (AUTO) 0.5 % (0-1); EOSINOPHILS # (AUTO) 0.3 X10'3 (0-0.9); EOSINOPHILS % (AUTO) 3.6 % (0-6); HEMATOCRIT 36.6 % (42.0-52.0); HEMOGLOBIN 12.8 g/dl (14.0-17.9); LYMPHOCYTES # (AUTO) 1.4 X10'3 (1.1-4.8); LYMPHOCYTES % (AUTO) 15.6 % (21-51); MEAN CORPUSCULAR HEMOGLOBIN 31.8 PG (27.0-31.0); MEAN CORPUSCULAR HGB CONC 34.9 g/dL (33.0-36.5); MEAN CORPUSCULAR VOLUME 91.1 FL (78-98); MEAN PLATELET VOLUME 8.7 FL (7.4-10.4); MONOCYTES # (AUTO) 0.6 X10'3 (0-0.9); MONOCYTES % (AUTO) 7.3 % (2-12); NEUTROPHILS # (AUTO) 6.4 X10'3 (1.8-7.7); PLATELET COUNT 254 X10'3 (140-440); RED BLOOD COUNT 4.01 X10'6 (4.70-6.10); RED CELL DISTRIBUTION WIDTH 12.7 % (11.5-14.5); WHITE BLOOD COUNT 8.8 X10'3 (4.5-11.0)
--- NOTE | 2019-07-29 06:05 | NUR ---
Problems reprioritized. Patient report given, questions answered & plan of care reviewed with Adelina JAUREGUI.
--- NOTE | 2019-07-29 07:01 | NUR ---
Patient in room [facility]. I have received report from henrietta JAUREGUI and had the opportunity to ask questions and assume patient care.
[2019-07-29 07:15] VITALS: BP 128/81
[2019-07-29] MEDS: magnesium hydroxide 30ml (MOM) UD suspension PO SCH (07:59)
--- NOTE | 2019-07-29 13:50 | NUR ---
patient complaining of pain medicated x2 with norco 10mg effective[facility], is for discharge. All DC instructions given to patient. patient awaiting ride, appears to be in stable condition, tolerating regular diet
--- NOTE | 2019-07-29 15:13 | NUR ---
Dc home with 1400hrs in stable condition via private car home
== END 2019-07-29 14:00 | disposition home or self-care (01) | DRG 230 ==
LOC: PAS IN 10:11 → EDSTATUS 14:30 → SUR 3N 20:00
PROVIDERS: ADMIT Surgery; ATTEND Surgery
PROC: 0DQB0ZZ Repair Ileum, Open Approach (ICD-10-PCS; principal; 2019-07-25 17:28)
DX: Z43.2 Encounter for attention to ileostomy (principal); K63.1 Perforation of intestine (nontraumatic); K56.7 Ileus, unspecified
CPT/HCPCS: 36415; 74176; 80053; 82948; 85025; 85610; 85730; 86885; 86900; 86901; 87081; A4618; A6253; A6407; A6449; A7000; G0378; J0131; J0694; J1100; J1170; J1580; J1885; J2175; J2250; J2270; J2704; J2710; J3010; J3480; J3490; J7120; Q9963; Q9967

== ENCOUNTER 2020-12-12 06:04 | Emergency (ER) | payer MEDICAID ==
[~2020-12-12] VITALS: Ht 177.8 cm; Wt 80.0 kg
[~2020-12-12 06:04] MED LIST changes: -ceFOXitin sod/dextrose 2g/50ml 50 ML IV ONE; -famotidine 20mg tablet PO ONE; -ringers solution, lacted 1,000 ML IV SCH
[2020-12-12] MEDS ORDERED: TETanus/Pertussis (Acell)/Diphther VAC/PF (Tdap-Adult) 0.5ml syringe IMVAC ONE (06:45)
[2020-12-12 07:00] VITALS: BP 115/83
[2020-12-12 07:14] LABS: BASOPHILS # (AUTO) 0.1 X10'3 (0-0.2); BASOPHILS % (AUTO) 1.1 % (0-1); EOSINOPHILS # (AUTO) 0.2 X10'3 (0-0.9); EOSINOPHILS % (AUTO) 4.2 % (0-6); HEMATOCRIT 33.7 % (42.0-52.0); HEMOGLOBIN 11.7 g/dl (14.0-17.9); LYMPHOCYTES # (AUTO) 0.9 X10'3 (1.1-4.8); LYMPHOCYTES % (AUTO) 17.5 % (21-51); MEAN CORPUSCULAR HEMOGLOBIN 33.2 PG (27.0-31.0); MEAN CORPUSCULAR HGB CONC 34.8 g/dL (33.0-36.5); MEAN CORPUSCULAR VOLUME 95.5 FL (78-98); MEAN PLATELET VOLUME 8.9 FL (7.4-10.4); MONOCYTES # (AUTO) 0.3 X10'3 (0-0.9); NEUTROPHILS # (AUTO) 3.6 X10'3 (1.8-7.7); NEUTROPHILS % (AUTO) 71.2 % (42-75); PLATELET COUNT 261 X10'3 (140-440); RED BLOOD COUNT 3.53 X10'6 (4.70-6.10); WHITE BLOOD COUNT 5.1 X10'3 (4.5-11.0)
[2020-12-12 07:32] LABS: ANION GAP 5 (8-16); BLOOD UREA NITROGEN 13 MG/DL (7-18); BUN/CREATININE RATIO 18.6 (5.4-32.0); CALCIUM 7.9 MG/DL (8.5-10.1); CHLORIDE 109 MMOL/L (99-107); GLUCOSE 97 MG/DL (70-104); POTASSIUM 3.9 MMOL/L (3.5-5.1); SODIUM 142 MMOL/L (135-145); TOTAL CARBON DIOXIDE 27.7 MMOL/L (24-32); eGFR > 90 ML/MIN
== END 2020-12-12 08:34 | disposition home or self-care (01) ==
LOC: ER 06:04
DX: S80.812A Abrasion, left lower leg, initial encounter (principal); S80.811A Abrasion, right lower leg, initial encounter; R60.0 Localized edema; F12.90 Cannabis use, unspecified, uncomplicated; F15.90 Other stimulant use, unspecified, uncomplicated; Z20.3 Contact with and (suspected) exposure to rabies; Z72.89 Other problems related to lifestyle; W19.XXXA Unspecified fall, initial encounter; Y93.89 Activity, other specified; Y92.89 Other specified places as the place of occurrence of the external cause; Y99.8 Other external cause status
CPT/HCPCS: 36415; 71045; 80048; 83880; 85025; 90471; 90715; 93005; 93971; 99285

== ENCOUNTER 2022-12-28 23:41 | Emergency (ER) | payer MEDICAID ==
[~2022-12-28] VITALS: Ht 180.3 cm; Wt 72.7 kg
[2022-12-29 02:31] VITALS: BP 122/82
[2022-12-29] MEDS ORDERED: sulfamethoxazole/trimethoprim DS (800/160mg) tablet PO ONE (03:25)
[2022-12-29] MEDS ORDERED: SULF1TAB49 PO (03:25)
[2022-12-29] MEDS ORDERED: rifampin 300mg capsule PO SCH (03:25)
== END 2022-12-29 03:59 | disposition home or self-care (01) ==
LOC: ER 23:42
DX: L02.01 Cutaneous abscess of face (principal); L03.113 Cellulitis of right upper limb; L02.511 Cutaneous abscess of right hand; F12.90 Cannabis use, unspecified, uncomplicated; F15.90 Other stimulant use, unspecified, uncomplicated; Z72.89 Other problems related to lifestyle; Z87.19 Personal history of other diseases of the digestive system; Z79.899 Other long term (current) drug therapy
CPT/HCPCS: 99283